=== PATIENT | female | born 1990 | race American Indian/Alaskan Native ===

== ENCOUNTER 2018-04-16 15:30 | Inpatient (IN) | payer OTHER ==
[~2018-04-16] VITALS: Ht 167.6 cm; Wt 68.0 kg
[~2018-04-16 15:30] MED LIST: PRENATAL CAPLE1 EACH PO
== END 2018-05-01 11:16 | disposition home or self-care (01) | DRG 775 ==
LOC: LDR 04-29 20:33 → OB/GYN 04-29 20:33
PROC: 10E0XZZ Delivery of Products of Conception, External Approach (ICD-10-PCS; principal; 2018-04-29)
PROC: 4A1HXCZ Monitoring of Products of Conception, Cardiac Rate, External Approach (ICD-10-PCS; 2018-04-29)
PROC: 0HQ9XZZ Repair Perineum Skin, External Approach (ICD-10-PCS; 2018-04-29)
PROC: 4A033R1 Measurement of Arterial Saturation, Peripheral, Percutaneous Approach (ICD-10-PCS; 2018-04-29)
DX: O70.0 First degree perineal laceration during delivery (principal); Z3A.39 39 weeks gestation of pregnancy; Z37.0 Single live birth

== ENCOUNTER 2020-04-12 06:03 | Inpatient (IN) | payer OTHER ==
[~2020-04-12] VITALS: Ht 167.6 cm; Wt 71.2 kg
[2020-04-12] MEDS ORDERED: PEPCID AC20 MG (08:37)
== END 2020-04-14 16:52 | disposition home or self-care (01) | DRG 807 ==
LOC: SURG-SUITE 06:03 → LDR 06:03 → SURG-SUITE 15:20 → OB/GYN 04-19 14:22
PROVIDERS: ADMIT Obstetrics & Gynecology; ATTEND Obstetrics & Gynecology
PROC: 10E0XZZ Delivery of Products of Conception, External Approach (ICD-10-PCS; principal; 2020-04-12)
PROC: 4A1HXCZ Monitoring of Products of Conception, Cardiac Rate, External Approach (ICD-10-PCS; 2020-04-12)
PROC: 0HQ9XZZ Repair Perineum Skin, External Approach (ICD-10-PCS; 2020-04-12)
DX: O70.0 First degree perineal laceration during delivery (principal); Z37.0 Single live birth; Z20.828 Contact with and (suspected) exposure to other viral communicable diseases; Z3A.39 39 weeks gestation of pregnancy

== ENCOUNTER 2022-06-26 14:49 | Outpatient (CLI) | payer OTHER ==
[~2022-06-26 14:49] MED LIST changes: +PEPCID AC20 MG
== END 2022-06-26 16:34 | disposition home or self-care (01) ==
LOC: NST 14:49
PROVIDERS: ATTEND Obstetrics & Gynecology
DX: Z34.83 Encounter for supervision of other normal pregnancy, third trimester (principal)

== ENCOUNTER 2022-06-27 03:43 | Inpatient (IN) | payer OTHER | END 2022-06-29 12:00 | disposition home or self-care (01) | DRG 807 | LOC: OB/GYN 03:43 → LDR 03:43 → OB/GYN 04:51 | PROVIDERS: ADMIT Obstetrics & Gynecology; ATTEND Obstetrics & Gynecology | PROC: 10E0XZZ Delivery of Products of Conception, External Approach (ICD-10-PCS; principal; 2022-06-27) | PROC: 0HQ9XZZ Repair Perineum Skin, External Approach (ICD-10-PCS; 2022-06-27) | PROC: 4A1HXCZ Monitoring of Products of Conception, Cardiac Rate, External Approach (ICD-10-PCS; 2022-06-27) | DX: O70.0 First degree perineal laceration during delivery (principal); Z37.0 Single live birth; Z3A.38 38 weeks gestation of pregnancy; Z20.822 Contact with and (suspected) exposure to COVID-19 ==

== ENCOUNTER 2024-06-03 07:31 | Outpatient (CLI) | payer OTHER | END 2024-06-03 12:00 | disposition home or self-care (01) | LOC: NST 07:31 | PROVIDERS: ATTEND Obstetrics & Gynecology Maternal & Fetal Medicine | DX: Z34.83 Encounter for supervision of other normal pregnancy, third trimester (principal) ==

== ENCOUNTER 2024-06-09 11:54 | Outpatient (CLI) | payer OTHER | END 2024-06-09 12:55 | disposition home or self-care (01) | LOC: NST 11:54 | PROVIDERS: ATTEND Obstetrics & Gynecology Maternal & Fetal Medicine | DX: Z34.83 Encounter for supervision of other normal pregnancy, third trimester (principal) ==

== ENCOUNTER 2024-06-17 11:30 | Outpatient (CLI) | payer OTHER | END 2024-06-17 12:25 | disposition home or self-care (01) | LOC: NST 11:30 | PROVIDERS: ATTEND Obstetrics & Gynecology | DX: Z34.83 Encounter for supervision of other normal pregnancy, third trimester (principal) ==

== ENCOUNTER 2024-06-21 11:23 | Inpatient (IN) | payer OTHER ==
[~2024-06-21] VITALS: Ht 167.6 cm; Wt 71.2 kg
[2024-06-23] MEDS ORDERED: PRENATAL TABLE1 EAC4 PO (23:48)
[2024-06-24] VITALS (7 sets, daily range): BP systolic 106–126; BP diastolic 66–87
[2024-06-24] MEDS ORDERED: OXYTOCIN 500 ML IV SCH (09:15)
[2024-06-24] MEDS ORDERED: CHLORHEXIDINE GLUCONATE 120 ML BOTTLE TOP SCH (14:45)
[2024-06-24] MEDS ORDERED: OXYTOCIN 1,000 ML IV SCH (14:45)
[2024-06-24] MEDS ORDERED: LIDOCAINE HCL 1% 10ML VIAL IJ ONE (15:45)
[2024-06-24] MEDS ORDERED: ERYTHROMYCIN BASE OPHT 1GM EACH TUBE OP ONE (15:45)
[2024-06-24] MEDS ORDERED: OxyCODONE HCL/APAP UD (PERCOCET) PO SCH (17:00)
[2024-06-24] MEDS ORDERED: KETOROLAC TROMETHAMINE 10 MG TABLET PO SCH (18:00)
[2024-06-25] VITALS: BP 104/63
[2024-06-25 08:41] VITALS: BP 105/72
[2024-06-25 16:03] VITALS: BP 108/72
[2024-06-26 00:11] VITALS: BP 99/62
[2024-06-26 08:00] VITALS: BP 111/73
== END 2024-06-26 13:04 | disposition home or self-care (01) | DRG 807 ==
LOC: LDR 06-24 07:39 → OB/GYN 06-24 14:59
PROVIDERS: ADMIT Obstetrics & Gynecology; ATTEND Obstetrics & Gynecology
PROC: 10E0XZZ Delivery of Products of Conception, External Approach (ICD-10-PCS; principal; 2024-06-24)
PROC: 0HQ9XZZ Repair Perineum Skin, External Approach (ICD-10-PCS; 2024-06-24)
PROC: 4A1HXCZ Monitoring of Products of Conception, Cardiac Rate, External Approach (ICD-10-PCS; 2024-06-24)
DX: O70.0 First degree perineal laceration during delivery (principal); Z37.0 Single live birth; Z3A.38 38 weeks gestation of pregnancy; Z20.822 Contact with and (suspected) exposure to COVID-19

== ENCOUNTER 2024-06-23 23:32 | Outpatient (CLI) | payer OTHER ==
[~2024-06-23] VITALS: Ht 167.6 cm; Wt 71.2 kg
[2024-06-23 23:20] VITALS: BP 123/81
[2024-06-23] MEDS ORDERED: MORPHINE SULFATE 4 MG/ML CARTRIDGE IV PRN (23:45)
[2024-06-23] MEDS ORDERED: RINGERS SOLUTION,LACTATED 1,000 ML IV SCH (23:45)
[2024-06-23] MEDS ORDERED: PRENATAL TABLE1 EAC4 PO (23:48)
[2024-06-24 00:11] LABS: HEMOGLOBIN 11.8 g/dL (12.0-15.00); MEAN CELL VOLUME 91.5 fL (80.00-100.00); MEAN CORPUSCULAR HEMOGLOBIN 31.7 pg (27.00-32.0); MEAN CORPUSCULAR HGB CONC 34.6 g/dl (32.0-36.0); PLATELET COUNT 227 K/uL (150-450); RED BLOOD COUNT 3.72 M/uL (4.00-6.00)
[2024-06-24 01:10] LABS: INR 0.94; PARTIAL THROMBOPLASTIN TIME 24.4 SECONDS (22.0-34.0); PROTHROMBIN TIME 10.3 SECONDS (9.0-11.5)
[2024-06-24 01:14] LABS: ALBUMIN 2.6 gm/dL (3.4-5.0); BILIRUBIN TOTAL 0.33 mg/dL (0.3-1.2); CALCIUM 8.9 mg/dL (8.5-10.1); CREATININE SERUM 0.51 mg/dL (0.55-1.02); GFR 137.23; GLOBULINA 3.8 G/DL (2.4-3.5); POTASSIUM 3.33 mEq/L (3.5-5.1); TOTAL PROTEIN 6.4 gm/dL (6.4-8.2)
[2024-06-24 03:23] VITALS: BP 118/80
[2024-06-24 07:33] VITALS: BP 126/78
[2024-06-24] MEDS ORDERED: OXYTOCIN 20 UNITS/500ML RL PIGGYBAG IV ONE (07:35)
== END 2024-06-24 07:38 | disposition still patient (30) ==
LOC: OBS/DEL 23:32
PROVIDERS: ATTEND Obstetrics & Gynecology
DX: O26.893 Other specified pregnancy related conditions, third trimester (principal); Z3A.38 38 weeks gestation of pregnancy